=== PATIENT | female | born 1970 | race Caucasian/White ===

== ENCOUNTER → 2018-08-26 | Outpatient (CLI) | payer OTHER ==
[~2018-08-26] MED LIST: CALCTAB97 PO; CLAR1TAB13 PO; ECOT81TA5 PO; FLON0.054; GILE1CAP PO; LORA10TA2 PO; MOTR200T44 PO; OXYB10TA PO; VITA200015 PO; YASM3TAB2 PO
--- NOTE | 2018-08-26 15:33 | REP ---
MR CERVICAL SPINE WITHOUT AND WITH CONTRAST: HISTORY: Multiple sclerosis. CONTRAST: ProHance 13 mL. There is no disc bulge or herniation. The spinal canal and the neural foramina are patent. The spinal cord is normal in signal intensity. There is no abnormal enhancement. Normal signal intensity is present in the cervical vertebral bodies. IMPRESSION: 1. There is no disc bulge or herniation. 2. There is no spinal cord lesion. Electronically Signed by Trent Rivera MD 08/26/2018 03:43 P
--- NOTE | 2018-08-30 09:01 | REP ---
MR BRAIN WITHOUT AND WITH CONTRAST: HISTORY: Multiple sclerosis. CONTRAST: ProHance 13 mL. Multiple areas of increased signal intensity on T2 weighted images are present in the periventricular and subcortical white matter and right cerebellum. There is no intraparenchymal hemorrhage, infarct, mass or midline shift. There is no abnormal enhancement. The ventricular system is normal in appearance. There is no extracerebral collection. The sinuses are clear. IMPRESSION:There are multiple areas of increased signal intensity of the periventricular and subcortical white matter and right cerebellum consistent with multiple sclerosis. Electronically Signed by Trent Rivera MD 08/29/2018 08:24 A
== END ==
LOC: M PLARAD 12:44
PROVIDERS: ATTEND Psychiatry & Neurology Neurology
DX: G35 Multiple sclerosis (principal)